=== PATIENT | female | born 1985 | race Caucasian/White ===

== ENCOUNTER 2017-07-13 20:27 | Emergency (ER) | payer SELFPAY ==
[2017-07-13] MEDS ORDERED: Ativan 2 MG/1 ML VIAL IV ONE ×2 (20:55→22:52)
--- NOTE | 2017-07-13 21:01 | ERPHSYRPT ---
- History of Present Illness Time Seen by Provider: 07/13/17 20:43 Source: patient Exam Limitations: no limitations Patient Subjective Stated Complaint: Palpitations Triage Nursing Assessment: Pt presents to the ED with complaints of palpitations. Pt states onset this AM. Pt states hx of complaint. Pt states she became worried due to continiued frequency of palpitations. Pt denies pain or SOB. Pt is A&O x3, no distress noted. Physician History: Pt is nonsmoker, has been c/o recurrent episodes of palpitations for about one month. She started having more severe episodes since this morning. She denies cardiac disease, or family history of such, no medical problems, denies being , not taking hormone pills. Timing/Duration: week(s) (4), intermittent Activities at Onset: none Quality: other (denies) Severity of Pain-Max: none Severity of Pain-Current: none Modifying Factors: Improves With: nothing Nitro Today/Relief: no nitro taken today Aspirin Treatment Today: no aspirin today Associated Symptoms: denies symptoms Prior Chest Pain/Cardiac Workup: no prior chest pain Allergies/Adverse Reactions: No Known Drug Allergies Allergy (Unverified 07/13/17 21:00) Hx Tetanus, Diphtheria Vaccination/Date Given: No Hx Influenza Vaccination/Date Given: No Hx Pneumococcal Vaccination/Date Given: No Immunizations Up to Date: No - Review of Systems Constitutional: No Symptoms Cardiac: Palpitations All Other Systems: Reviewed and Negative - Past Medical History Pertinent Past Medical History: Yes Neurological History: No Pertinent History ENT History: No Pertinent History Cardiac History: Hypertension, Other Respiratory History: No Pertinent History Endocrine Medical History: No Pertinent History Musculoskeletal History: No Pertinent History GI Medical History: No Pertinent History History: No Pertinent History Psycho-Social History: No Pertinent History Female Reproductive Disorders: No Pertinent History - Past Surgical History Past Surgical History: Yes Neuro Surgical History: No Pertinent History Cardiac: No Pertinent History Respiratory: No Pertinent History Gastrointestinal: No Pertinent History Genitourinary: No Pertinent History Musculoskeletal: No Pertinent History Female Surgical History: Section - Social History Smoking Status: Never smoker Exposure to second hand smoke: No Drug Use: none Patient Lives Alone: No - Female History Hx Last Menstrual Period: 06/12/2017 Hx Now: No - Nursing Vital Signs Nursing Vital Signs: Initial Vital Signs Temperature 98.7 F 07/13/17 20:49 Pulse Rate 119 H 07/13/17 20:49 Respiratory Rate 17 07/13/17 20:49 Blood Pressure 192/108 07/13/17 20:49 O2 Sat by Pulse Oximetry 100 07/13/17 20:49 Pain Scale Pain Intensity 0 - Physical Exam General Appearance: no apparent distress Eye Exam: PERRL/EOMI Ears, Nose, Throat Exam: normal ENT inspection Neck Exam: normal inspection, non-tender, supple, No carotid bruit, No JVD Respiratory Exam: normal breath sounds, lungs clear, No chest tenderness Cardiovascular Exam: normal heart sounds, normal peripheral pulses, tachycardia , No murmur Gastrointestinal/Abdomen Exam: soft, normal bowel sounds Back Exam: normal inspection Extremity Exam: normal inspection, No calf tenderness Neurologic Exam: alert, oriented x 3, normal mood/affect Skin Exam: normal color, warm, dry, No rash Lymphatic Exam: No adenopathy SpO2 Interpretation: normal SpO2: 100 Oxygen Delivery: Room Air - Course Nursing assessment & vital signs reviewed: Yes EKG Interpreted by Me: Sinus Tach, NORMAL AXIS, Non-specific ST Changes - Radiology Exams Chest X-ray Interpretation: Interpreted by me, Negative Ordered Tests: Active Orders 24 hr Category Date Time Status Change House Attendant STAT Care 07/13/17 20:55 Active EKG-ER Only STAT Care 07/13/17 20:55 Active EKG-ER Only STAT Care 07/14/17 00:14 Active IV Insertion STAT Care 07/13/17 20:55 Active CHEST 1 VIEW (PORTABLE) Stat Exams 07/13/17 20:55 Taken CBC W DIFF Stat Lab 07/13/17 22:00 Completed CK-Creatinine Phosphokinase Stat Lab 07/13/17 22:00 Completed CMP Stat Lab 07/13/17 22:00 Completed D-DIMER QUANTITATION Stat Lab 07/13/17 22:15 Completed HCG,QUALITATIVE URINE Stat Lab 07/13/17 22:00 Completed MAGNESIUM Stat Lab 07/13/17 22:00 Completed NT PRO BNP Stat Lab 07/13/17 22:00 Completed TROPONIN Q3H Lab 07/13/17 22:00 Completed TROPONIN Q3H Lab 07/14/17 00:10 Completed TROPONIN Q3H Lab 07/14/17 03:00 Ordered TROPONIN Q3H Lab 07/14/17 06:00 Ordered TROPONIN Q3H Lab 07/14/17 09:00 Ordered TSH [TSH, 3RD Generation] Stat Lab 07/13/17 22:00 Completed UA W/RFX UR CULTURE Stat Lab 07/13/17 22:00 Completed Urine Triage Profile Stat Lab 07/13/17 22:00 Completed Medication Summary Generic Name Dose Route Start Last Admin Trade Name Marcus PRN Reason Stop Dose Admin Metoprolol Succinate 50 mg 07/14/17 23:55 07/14/17 00:00 Toprol Xl 50 Mg PO 07/14/17 23:56 50 mg NOW ONE Administration Discontinued Medications Generic Name Dose Route Start Last Admin Trade Name Marcus PRN Reason Stop Dose Admin Diphenhydramine HCl 25 mg 07/13/17 22:52 07/13/17 22:55 Benadryl 50 Mg/Ml IV 07/13/17 22:53 25 mg STAT ONE Administration Diphenhydramine HCl Confirm 07/13/17 22:53 Benadryl 50 Mg/Ml Administered 07/13/17 22:54 Dose 50 mg .ROUTE .STK-MED ONE Sodium Chloride 1,000 mls @ 999 mls/hr 07/13/17 22:50 07/13/17 22:55 Sodium Chloride 0.9% 1000 Ml IV 07/13/17 23:50 999 mls/hr .Q1H1M STA Administration Sodium Chloride Confirm 07/13/17 22:53 Sodium Chloride 0.9% 1000 Ml Administered 07/13/17 22:54 Dose 1,000 mls @ ud .ROUTE .STK-MED ONE Lorazepam 0.5 mg 07/13/17 20:55 07/13/17 21:34 Ativan 2 Mg/1 Ml Vial IV 07/13/17 20:56 0.5 mg STAT ONE Administration Lorazepam Confirm 07/13/17 21:05 Ativan 2 Mg/1 Ml Vial Administered 07/13/17 21:06 Dose 2 mg .ROUTE .STK-MED ONE Lorazepam 0.5 mg 07/13/17 22:52 07/13/17 22:55 Ativan 2 Mg/1 Ml Vial IV 07/13/17 22:53 0.5 mg STAT ONE Administration Lorazepam Confirm 07/13/17 22:52 Ativan 2 Mg/1 Ml Vial Administered 07/13/17 22:53 Dose 2 mg .ROUTE .STK-MED ONE Metoprolol Succinate Confirm 07/13/17 23:57 Toprol-Xl 25mg Tablets Administered 07/13/17 23:58 Dose 50 mg .ROUTE .STK-MED ONE Lab/Rad Data: Laboratory Result Diagrams 07/13/17 22:00 07/13/17 22:00 Laboratory Results 07/14/17 07/13/17 07/13/17 Range/Units 00:10 22:15 22:00 WBC (4.0-10.5) K/mm3 RBC (4.1-5.4) M/mm3 Hgb (12.0-16.0) gm/dl Hct (35-47) % MCV (78-100) fl MCH (26-32) pg MCHC (32-36) g/dl RDW (11.5-14.0) % Plt Count (150-450) K/mm3 MPV (6-9.5) fl Gran % (36.0-66.0) % Lymphocytes % (24.0-44.0) % Monocytes % (0.0-12.0) % Eosinophils % (0.00-5.0) % Basophils % (0.0-0.4) % Basophils # (0-0.4) D-Dimer 281.23 (0-500) ng/mL Sodium (136-145) mEq/L Potassium (3.5-5.1) mEq/L Chloride (98-107) mEq/L Carbon Dioxide (21-32) mEq/L Anion Gap (5-15) MEQ/L BUN (9-20) mg/dL Creatinine (0.55-1.30) mg/dl Estimated GFR ML/MIN Glucose (70-110) MG/DL Calcium (8.5-10.1) mg/dL Magnesium (1.8-2.4) mg/dL Total Bilirubin (0.2-1.0) mg/dL AST (15-37) U/L ALT (12-78) U/L Alkaline Phosphatase (46-116) U/L Creatine Kinase (26-192) U/L Troponin I < 0.017 (0.000-0.056) ng/ml NT-Pro-B Natriuret Pep (0-125) pg/ml Serum Total Protein (6.4-8.2) gm/dL Albumin (3.4-5.0) g/dL TSH 3rd Generation 1.915 (0.358-3.740) mIU/L Ur Collection Type Urine Color (YELLOW) Urine Appearance (CLEAR) Urine pH (5-6) Ur Specific [place] (1.005-1.025) Urine Protein (Negative) Urine Ketones (NEGATIVE) Urine Blood (0-5) Bhavesh/ul Urine Nitrite (NEGATIVE) Urine Bilirubin (NEGATIVE) Urine Urobilinogen (0-1) mg/dL Ur Leukocyte Esterase (NEGATIVE) Urine Culture Reflexed (NO) Urine Glucose (NEGATIVE) mg/dL Urine HCG, Qual (Negative) Urine Opiates Level (NEGATIVE) Ur Methadone (NEGATIVE) Urine Barbiturates (NEGATIVE) Ur Phencyclidine (PCP) (NEGATIVE) Urine Amphetamine (NEGATIVE) U Benzodiazepine Level (NEGATIVE) Urine Cocaine (NEGATIVE) Urine Marijuana (THC) (NEGATIVE) Specimen Received 07/13/17 07/13/17 07/13/17 Range/Units 22:00 22:00 22:00 WBC 13.7 H (4.0-10.5) K/mm3 RBC 5.19 (4.1-5.4) M/mm3 Hgb 13.1 (12.0-16.0) gm/dl Hct 41.5 (35-47) % MCV 80.0 (78-100) fl MCH 25.2 L (26-32) pg MCHC 31.6 L (32-36) g/dl RDW 16.2 H (11.5-14.0) % Plt Count 250 (150-450) K/mm3 MPV 11.1 H (6-9.5) fl Gran % 80.3 H (36.0-66.0) % Lymphocytes % 14.2 L (24.0-44.0) % Monocytes % 4.0 (0.0-12.0) % Eosinophils % 1.4 (0.00-5.0) % Basophils % 0.1 (0.0-0.4) % Basophils # 0.02 (0-0.4) D-Dimer (0-500) ng/mL Sodium 138 (136-145) mEq/L Potassium 3.8 (3.5-5.1) mEq/L Chloride 103 (98-107) mEq/L Carbon Dioxide 26.4 (21-32) mEq/L Anion Gap 12.7 (5-15) MEQ/L BUN 13 (9-20) mg/dL Creatinine 0.92 (0.55-1.30) mg/dl Estimated GFR > 60 ML/MIN Glucose 146 H (70-110) MG/DL Calcium 9.4 (8.5-10.1) mg/dL Magnesium 1.8 (1.8-2.4) mg/dL Total Bilirubin 0.10 L (0.2-1.0) mg/dL AST 20 (15-37) U/L ALT 32 (12-78) U/L Alkaline Phosphatase 63 (46-116) U/L Creatine Kinase 59 (26-192) U/L Troponin I < 0.017 (0.000-0.056) ng/ml NT-Pro-B Natriuret Pep 99 (0-125) pg/ml Serum Total Protein 8.0 (6.4-8.2) gm/dL Albumin 3.5 (3.4-5.0) g/dL TSH 3rd Generation (0.358-3.740) mIU/L Ur Collection Type Urine Color (YELLOW) Urine Appearance (CLEAR) Urine pH (5-6) Ur Specific [place] (1.005-1.025) Urine Protein (Negative) Urine Ketones (NEGATIVE) Urine Blood (0-5) Bhavesh/ul Urine Nitrite (NEGATIVE) Urine Bilirubin (NEGATIVE) Urine Urobilinogen (0-1) mg/dL Ur Leukocyte Esterase (NEGATIVE) Urine Culture Reflexed (NO) Urine Glucose (NEGATIVE) mg/dL Urine HCG, Qual (Negative) Urine Opiates Level (NEGATIVE) Ur Methadone (NEGATIVE) Urine Barbiturates (NEGATIVE) Ur Phencyclidine (PCP) (NEGATIVE) Urine Amphetamine (NEGATIVE) U Benzodiazepine Level (NEGATIVE) Urine Cocaine (NEGATIVE) Urine Marijuana (THC) (NEGATIVE) Specimen Received 07/13/17 07/13/17 07/13/17 Range/Units 22:00 22:00 22:00 WBC (4.0-10.5) K/mm3 RBC (4.1-5.4) M/mm3 Hgb (12.0-16.0) gm/dl Hct (35-47) % MCV (78-100) fl MCH (26-32) pg MCHC (32-36) g/dl RDW (11.5-14.0) % Plt Count (150-450) K/mm3 MPV (6-9.5) fl Gran % (36.0-66.0) % Lymphocytes % (24.0-44.0) % Monocytes % (0.0-12.0) % Eosinophils % (0.00-5.0) % Basophils % (0.0-0.4) % Basophils # (0-0.4) D-Dimer (0-500) ng/mL Sodium (136-145) mEq/L Potassium (3.5-5.1) mEq/L Chloride (98-107) mEq/L Carbon Dioxide (21-32) mEq/L Anion Gap (5-15) MEQ/L BUN (9-20) mg/dL Creatinine (0.55-1.30) mg/dl Estimated GFR ML/MIN Glucose (70-110) MG/DL Calcium (8.5-10.1) mg/dL Magnesium (1.8-2.4) mg/dL Total Bilirubin (0.2-1.0) mg/dL AST (15-37) U/L ALT (12-78) U/L Alkaline Phosphatase (46-116) U/L Creatine Kinase (26-192) U/L Troponin I (0.000-0.056) ng/ml NT-Pro-B Natriuret Pep (0-125) pg/ml Serum Total Protein (6.4-8.2) gm/dL Albumin (3.4-5.0) g/dL TSH 3rd Generation (0.358-3.740) mIU/L Ur Collection Type CCMS Urine Color LT.YELLOW (YELLOW) Urine Appearance CLEAR (CLEAR) Urine pH 7.0 (5-6) Ur Specific [place] 1.005 (1.005-1.025) Urine Protein NEGATIVE (Negative) Urine Ketones NEGATIVE (NEGATIVE) Urine Blood NEGATIVE (0-5) Bhavesh/ul Urine Nitrite NEGATIVE (NEGATIVE) Urine Bilirubin NEGATIVE (NEGATIVE) Urine Urobilinogen NORMAL (0-1) mg/dL Ur Leukocyte Esterase NEGATIVE (NEGATIVE) Urine Culture Reflexed NO (NO) Urine Glucose NEGATIVE (NEGATIVE) mg/dL Urine HCG, Qual NEGATIVE (Negative) Urine Opiates Level NEG. (NEGATIVE) Ur Methadone NEG. (NEGATIVE) Urine Barbiturates NEG. (NEGATIVE) Ur Phencyclidine (PCP) NEG. (NEGATIVE) Urine Amphetamine NEG. (NEGATIVE) U Benzodiazepine Level NEG. (NEGATIVE) Urine Cocaine NEG. (NEGATIVE) Urine Marijuana (THC) NEG. (NEGATIVE) Specimen Received [id number] - Progress Progress: improved Air Movement: good Progress Note: 07/14/17 00:57 Heart rate controlled after Ativan iv saline and Metoprolol PO, she feels better , denies chest pain or SOB, stable. Informed about all results and recommend close follow up with a primary care doctor, given Rx for Metoprolol. - Departure Time of Disposition: 00:58 Departure Disposition: Home Clinical Impression: Palpitations Hypertension Qualifiers: Hypertension type: unspecified Qualified Code(s): I10 - Essential (primary) hypertension Condition: Stable Critical Care Time: No Instructions: Palpitations, Palpitations (DC), High Blood Pressure (DC) Additional Instructions: Rest x 2-3 days, return if severe palpitations, dizziness, chest pain, shortness of breath! Establish with primary care doctor for close follow up and further workup! Prescriptions: Metoprolol Succinate 50 mg [Toprol Xl 50 MG] 50 mg PO DAILY #30 tablet
[2017-07-13] MEDS ORDERED: Ativan 2 MG/1 ML VIAL ONE ×2 (21:05→22:52)
[2017-07-13 22:16] LABS: BASOPHIL % 0.1 % (0.0-0.4); Basophil (Absolute #) 0.02 (0-0.4); Eosinophil % 1.4 % (0.00-5.0); Eosinophil (Absolute #) 0.19 (0-0.5); Granulocyte Absolute (ANC) 10.99 (1.4-6.9); Granulocytes % 80.3 % (36.0-66.0); Hematocrit 41.5 % (35-47); Hemoglobin 13.1 gm/dl (12.0-16.0); Lymphocyte (Absolute #) 1.95 (1.0-4.6); Lymphocytes % 14.2 % (24.0-44.0); Mean Corpuscular Hemoglobin 25.2 pg (26-32); Mean Corpuscular Hgb Concent. 31.6 g/dl (32-36); Mean Platelet Volume 11.1 fl (6-9.5); Monocyte (Absolute #) 0.55 (0.0-1.3); Platelet Count 250 K/mm3 (150-450); Red Blood Count 5.19 M/mm3 (4.1-5.4); Red Cell Distribution Width 16.2 % (11.5-14.0); White Blood Count 13.7 K/mm3 (4.0-10.5)
[2017-07-13 22:22] LABS: Appearance CLEAR (CLEAR); Bilirubin NEGATIVE (NEGATIVE); Blood NEGATIVE Ery/ul (0-5); Glucose NEGATIVE (NEGATIVE); Ketones NEGATIVE (NEGATIVE); Leukocyte Esterase NEGATIVE (NEGATIVE); Nitrite NEGATIVE (NEGATIVE); Protein,Urine Dip NEGATIVE (Negative); Specific Gravity 1.005 (1.005-1.025); Urobilinogen NORMAL mg/dL (0-1)
[2017-07-13 22:28] LABS: Amphetamine,Urine NEG. (NEGATIVE); Barbiturate,Urine NEG. (NEGATIVE); Benzodiazepine,Urine NEG. (NEGATIVE); Cocaine,Urine NEG. (NEGATIVE); Methadone,Urine NEG. (NEGATIVE); Opiate,Urine NEG. (NEGATIVE); PCP,Urine NEG. (NEGATIVE); THC,Urine NEG. (NEGATIVE)
[2017-07-13] MEDS ORDERED: Sodium Chloride 0.9% 1000 ML 1,000 ML IV STA (22:50)
[2017-07-13] MEDS ORDERED: BENADRYL 50 MG/ML IV ONE (22:52)
[2017-07-13] MEDS ORDERED: Sodium Chloride 0.9% 1000 ML 1,000 ML ONE (22:53)
[2017-07-13] MEDS ORDERED: BENADRYL 50 MG/ML ONE (22:53)
[2017-07-13 22:57] LABS: ALBUMIN 3.5 g/dL (3.4-5.0); ALKALINE PHOSPHATASE 63 U/L (46-116); ANION GAP 12.7 MEQ/L (5-15); BLOOD UREA NITROGEN 13 mg/dL (9-20); CHLORIDE 103 mEq/L (98-107); CK-Creatinine Phosphokinase 59 U/L (26-192); Calcium 9.4 mg/dL (8.5-10.1); Carbon Dioxide 26.4 mEq/L (21-32); Creatinine 1 0.92 mg/dl (0.55-1.30); EST GLOMERULAR FILTRATION RATE > 60 ML/MIN; Glucose 146 MG/DL (70-110); MAGNESIUM 1.8 mg/dL (1.8-2.4); NT PRO BNP 99 pg/ml (0-125); Potassium 3.8 mEq/L (3.5-5.1); SGOT/AST 20 U/L (15-37); SGPT/ALT 32 U/L (12-78); SODIUM 138 mEq/L (136-145)
[2017-07-13] MEDS ORDERED: Toprol-Xl 25MG Tablets ONE (23:57)
[2017-07-14 01:24] VITALS: BP 148/93; PULSE 85; O2SAT 96
--- NOTE | 2017-07-14 09:03 | XRAY ---
Indication: Palpitations. Comparison: None Portable apical lordotic chest is clear with a few incidental calcified granulomas. Heart and mediastinal structures within normal limits for AP portable technique. Bony thoracic intact. Impression: Nonacute chest. Evidence for old granulomatous disease.
[2017-07-14] MEDS ORDERED: Toprol Xl 50 MG PO ONE (23:55)
== END 2017-07-14 01:26 | disposition home or self-care (01) ==
LOC: ED 20:27
DX: R00.2 Palpitations (principal); I10 Essential (primary) hypertension
CPT/HCPCS: 36000; 36415; 71045; 80053; 80307; 81002; 82550; 83735; 83880; 84443; 84484; 84703; 85025; 85379; 93005; 93041; 96360; 96374; 96376; 99284; J1200; J2060; A9270-GY

== ENCOUNTER 2017-12-24 08:57 | Emergency (ER) | payer OTHER ==
[2017-12-24] MEDS ORDERED: ZOFRAN ODT 4 MG PO ONE (09:15)
--- NOTE | 2017-12-24 09:15 | ERPHSYRPT ---
- History of Present Illness Time Seen by Provider: 12/24/17 09:10 Historian: patient, EMS Exam Limitations: no limitations Patient Subjective Stated Complaint: pt here for nausea that woke up this morning and states she about passed out from dry heaves, and got scared and wanted to be seen, pt states she feels much better now Triage Nursing Assessment: pt alert, resp easy, skin w/d/p. abd soft, Physician History: The patient is a 32-year-old female brought in from home by ambulance where she had a sudden onset of abdominal pain and cramping followed by several rounds of watery diarrhea. She also states she was experiencing dry heaves, 30, 40, or 50 times. She became panicked because she had never experienced anything like this before. She had her call the ambulance. She started to feel much better. She declined an IV in the ambulance as well as declining an IV or blood glucose stick here in the ER. She wants to try drinking without having an IV. Her past medical history is significant for palpitations and hypertension. Her surgical history is significant for 3 C-sections. Timing/Duration: today Activities at Onset: none Quality: cramping Abdominal Pain Onset Location: epigastric Pain Radiation: no radiation Severity of Pain-Max: severe Severity of Pain-Current: none Modifying Factors: Improves With: other (diarrhea) Associated Symptoms: diarrhea, nausea Previous symptoms: no prior history Allergies/Adverse Reactions: Penicillins Allergy (Verified 12/24/17 09:09) Hx Tetanus, Diphtheria Vaccination/Date Given: No Hx Influenza Vaccination/Date Given: No Hx Pneumococcal Vaccination/Date Given: No Immunizations Up to Date: Yes - Review of Systems Constitutional: No Fever, No Chills Eyes: No Symptoms Ears, Nose, & Throat: No Symptoms Respiratory: No Cough, No Dyspnea Cardiac: No Chest Pain, No Edema, No Syncope Abdominal/Gastrointestinal: Abdominal Pain, Nausea, Diarrhea Genitourinary Symptoms: No Dysuria Musculoskeletal: No Back Pain, No Neck Pain Skin: No Rash Neurological: No Dizziness, No Focal Weakness, No Sensory Changes Psychological: No Symptoms Endocrine: No Symptoms Hematologic/Lymphatic: No Symptoms Immunological/Allergic: No Symptoms All Other Systems: Reviewed and Negative - Past Medical History Pertinent Past Medical History: Yes Neurological History: No Pertinent History ENT History: No Pertinent History Cardiac History: Hypertension, Other Respiratory History: No Pertinent History Endocrine Medical History: No Pertinent History Musculoskeletal History: No Pertinent History GI Medical History: No Pertinent History History: No Pertinent History Psycho-Social History: No Pertinent History Female Reproductive Disorders: No Pertinent History - Past Surgical History Past Surgical History: Yes Neuro Surgical History: No Pertinent History Cardiac: No Pertinent History Respiratory: No Pertinent History Gastrointestinal: No Pertinent History Genitourinary: No Pertinent History Musculoskeletal: No Pertinent History Female Surgical History: Section - Social History Smoking Status: Never smoker Exposure to second hand smoke: No Drug Use: none Patient Lives Alone: No - Female History Hx Last Menstrual Period: october 07 Hx Now: No - Nursing Vital Signs Nursing Vital Signs: Pain Scale Pain Intensity 0 - Physical Exam General Appearance: no apparent distress, alert, obese Eye Exam: PERRL/EOMI, eyes nml inspection Ears, Nose, Throat Exam: normal ENT inspection, pharynx normal, moist mucous membranes Neck Exam: normal inspection, non-tender, supple, full range of motion Respiratory Exam: normal breath sounds, lungs clear, No respiratory distress Cardiovascular Exam: regular rate/rhythm, normal heart sounds Gastrointestinal/Abdomen Exam: other (hyperactive BS), No tenderness Pelvic Exam: not done Rectal Exam: not done Back Exam: normal inspection, normal range of motion, No CVA tenderness, No vertebral tenderness Extremity Exam: normal inspection, normal range of motion, pelvis stable Neurologic Exam: alert, oriented x 3, cooperative, normal mood/affect, nml cerebellar function, sensation nml, No motor deficits Skin Exam: normal color, warm, dry SpO2 Interpretation: normal - Radiology Exams Abdomen X-ray Interpretation: Interpreted by me, Negative Ordered Tests: Active Orders 24 hr Category Date Time Status KUB Stat Exams 12/24/17 09:43 Completed BMP Stat Lab 12/24/17 09:26 Completed CBC W DIFF Stat Lab 12/24/17 09:26 Completed HCG QUALITATIVE,SERUM Stat Lab 12/24/17 09:26 Completed Medication Summary Discontinued Medications Generic Name Dose Route Start Last Admin Trade Name Freq PRN Reason Stop Dose Admin Ondansetron HCl 4 mg 12/24/17 09:15 12/24/17 09:29 Zofran Odt 4 Mg PO 12/24/17 09:16 4 mg STAT ONE Administration Ondansetron HCl Confirm 12/24/17 09:29 Zofran Odt 4 Mg Administered 12/24/17 09:30 Dose 4 mg .ROUTE .STK-MED ONE Lab/Rad Data: Laboratory Result Diagrams 12/24/17 09:26 12/24/17 09:26 Laboratory Results 12/24/17 12/24/17 12/24/17 Range/Units 09:26 09: 09:26 WBC 10.7 H (4.0-10.5) K/mm3 RBC 5.19 (4.1-5.4) M/mm3 Hgb 13.1 (12.0-16.0) gm/dl Hct 41.5 (35-47) % MCV 80.0 (78-100) fl MCH 25.2 L (26-32) pg MCHC 31.6 L (32-36) g/dl RDW 17.1 H (11.5-14.0) % Plt Count 213 (150-450) K/mm3 MPV 10.3 H (6-9.5) fl Gran % 79.0 H (36.0-66.0) % Eos # (Auto) 0.07 (0-0.5) Absolute Lymphs (auto) 1.59 (1.0-4.6) Absolute Monos (auto) 0.56 (0.0-1.3) Lymphocytes % 14.9 L (24.0-44.0) % Monocytes % 5.3 (0.0-12.0) % Eosinophils % 0.7 (0.00-5.0) % Basophils % 0.1 (0.0-0.4) % Absolute Granulocytes 8.42 H (1.4-6.9) Basophils # 0.01 (0-0.4) Sodium 141 (137-145) mmol/L Potassium 3.9 (3.5-5.1) mmol/L Chloride 109 H (98-107) mmol/L Carbon Dioxide 24 (22-30) mmol/L Anion Gap 12.9 (5-15) MEQ/L BUN 10 (7-17) mg/dL Creatinine 0.68 (0.52-1.04) mg/dL Estimated GFR > 60.0 ML/MIN Glucose 128 H (74-106) mg/dL Calcium 8.9 (8.4-10.2) mg/dL Serum , Qual NEGATIVE (Negative) - Progress Progress: improved Progress Note: 12/24/17 10:14 Pt eating ice chips and feeling better. Counseled pt/family regarding: lab results, diagnosis, rad results - Departure Time of Disposition: 10:15 Departure Disposition: Home Clinical Impression: Gastroenteritis Condition: Stable Critical Care Time: No Referrals: DOCTOR,NO FAMILY [Primary Care Provider] - Additional Instructions: You have gastroenteritis. You were given Zofran 4 mg ODT in the ER. Begin your diet with liquids and advance as tolerated. You may take Zofran 4 mg ODT every 6 hours as needed for nausea. Follow-up as needed. Prescriptions: Ondansetron ODT 4 MG [Zofran Odt 4 mg] 1 tab PO Q6H PRN PRN #10 tab.rapdis PRN Reason: Nausea/Vomiting
[2017-12-24 09:28] LABS: BASOPHIL % 0.1 % (0.0-0.4); Basophil (Absolute #) 0.01 (0-0.4); Eosinophil % 0.7 % (0.00-5.0); Eosinophil (Absolute #) 0.07 (0-0.5); Granulocyte Absolute (ANC) 8.42 (1.4-6.9); Hematocrit 41.5 % (35-47); Hemoglobin 13.1 gm/dl (12.0-16.0); Lymphocyte (Absolute #) 1.59 (1.0-4.6); Lymphocytes % 14.9 % (24.0-44.0); Mean Corpuscular Hemoglobin 25.2 pg (26-32); Mean Corpuscular Hgb Concent. 31.6 g/dl (32-36); Mean Platelet Volume 10.3 fl (6-9.5); Monocyte (Absolute #) 0.56 (0.0-1.3); Monocytes % 5.3 % (0.0-12.0); Platelet Count 213 K/mm3 (150-450); Red Blood Count 5.19 M/mm3 (4.1-5.4); Red Cell Distribution Width 17.1 % (11.5-14.0); White Blood Count 10.7 K/mm3 (4.0-10.5)
[2017-12-24] MEDS ORDERED: ZOFRAN ODT 4 MG ONE (09:29)
[2017-12-24 09:54] LABS: ANION GAP 12.9 MEQ/L (5-15); BLOOD UREA NITROGEN 10 mg/dL (7-17); CHLORIDE 109 mmol/L (98-107); Calcium 8.9 mg/dL (8.4-10.2); Carbon Dioxide 24 mmol/L (22-30); Creatinine 1 0.68 mg/dL (0.52-1.04); Glucose 128 mg/dL (74-106); Potassium 3.9 mmol/L (3.5-5.1); SODIUM 141 mmol/L (137-145)
--- NOTE | 2017-12-24 10:07 | XRAY ---
Indication: Stomach pain and nausea. Comparison: None KUB nonacute and nonobstructed. Solid organs and osseous structures unremarkable. Impression: Negative KUB.
[2017-12-24 10:59] VITALS: BP 153/97; PULSE 97; O2SAT 97
== END 2017-12-24 10:59 | disposition home or self-care (01) ==
LOC: ED 08:57
DX: K52.9 Noninfective gastroenteritis and colitis, unspecified (principal); I10 Essential (primary) hypertension
CPT/HCPCS: 36415; 74018; 80048; 84703; 85025; 99284; Q0162

== ENCOUNTER 2020-09-05 19:09 | Emergency (ER) | payer OTHER ==
[2020-09-05] MEDS ORDERED: TORAdol 30 mg Injection IM ONE (20:26)
--- NOTE | 2020-09-05 20:26 | ERPHSYRPT ---
- History of Present Illness Time Seen by Provider: 09/05/20 20:21 Source: patient, family Exam Limitations: no limitations Patient Subjective Stated Complaint: pt states at 0130 she started having cramps and felt like her neck and back of her head was very tense. states that feeling lasted for approx 1/2 an hour and has had a throbbing headache since. states pain in the back of her head is throbbing Triage Nursing Assessment: pt alert and oriented, answers questions approp. pt ambulatory with steady gait noted. skin warm and dry. respirations nonlabored with lungs cta. pupils equal and reactive. bilat upper and lower ext equal and wnl. Physician History: pt has hx of tension headaches similar to this and was concerned since her BP was a little high this time. Fundi are benign and no neuro deficits , no CP , no N/V, no abd pain no fever, no meningismis. no hx trauma. discussed CT and pt does agree after discussion to f/u PCP to consider MRI rather than rad risk of CT, which is a reasonable Timing/Duration: today Quality: aching Head Pain Location: occipital Severity of Pain-Max: moderate Severity of Pain-Current: moderate Recent Head Trauma: no recent headache/trauma, chronic headaches Associated Symptoms: denies symptoms Previous symptoms: no prior history Allergies/Adverse Reactions: Penicillins Allergy (Verified 09/05/20 20:00) Home Medications: Montelukast Sodium 10 mg [Singulair 10 MG] 10 mg PO HS 09/05/20 [History] Hx Tetanus, Diphtheria Vaccination/Date Given: No Hx Influenza Vaccination/Date Given: No Hx Pneumococcal Vaccination/Date Given: No Immunizations Up to Date: No Travel Risk - International Travel Have you traveled outside of the country in past 3 weeks: No - Coronavirus Screening Are you exhibiting any of the following symptoms?: No Close contact with a COVID-19 positive Pt in past 14-21 Days: No - Vaccine Status Have you recieved a Covid-19 vaccination: No - Review of Systems Constitutional: No Fever, No Chills Eyes: No Symptoms Ears, Nose, & Throat: No Symptoms Respiratory: No Cough, No Dyspnea Cardiac: No Chest Pain, No Edema, No Syncope Abdominal/Gastrointestinal: No Abdominal Pain, No Nausea, No Vomiting, No Diarrhea Genitourinary Symptoms: No Dysuria Musculoskeletal: No Back Pain, No Neck Pain Skin: No Rash Neurological: Headache, No Dizziness, No Focal Weakness, No Sensory Changes Psychological: No Symptoms Endocrine: No Symptoms All Other Systems: Reviewed and Negative - Past Medical History Pertinent Past Medical History: Yes Neurological History: No Pertinent History ENT History: No Pertinent History Cardiac History: Hypertension, Other Respiratory History: Sleep Apnea Endocrine Medical History: No Pertinent History Musculoskeletal History: No Pertinent History GI Medical History: No Pertinent History History: No Pertinent History Psycho-Social History: No Pertinent History Female Reproductive Disorders: No Pertinent History - Past Surgical History Past Surgical History: Yes Neuro Surgical History: No Pertinent History Cardiac: No Pertinent History Respiratory: No Pertinent History Gastrointestinal: No Pertinent History Genitourinary: No Pertinent History Musculoskeletal: No Pertinent History Female Surgical History: Section - Social History Smoking Status: Never smoker Exposure to second hand smoke: No Drug Use: none Patient Lives Alone: No - Female History Hx Last Menstrual Period: this week Hx Now: No - Nursing Vital Signs Nursing Vital Signs: Initial Vital Signs Pulse Rate 107 H 09/05/20 19:49 Respiratory Rate 18 09/05/20 19:49 Blood Pressure 195/115 09/05/20 19:49 O2 Sat by Pulse Oximetry 99 09/05/20 19:49 Pain Scale Pain Intensity 4 - Physical Exam General Appearance: no apparent distress Eye Exam: PERRL/EOMI Ears, Nose, Throat Exam: normal ENT inspection, moist mucous membranes Neck Exam: normal inspection, supple, full range of motion, No meningismus Respiratory Exam: normal breath sounds, lungs clear Cardiovascular Exam: regular rate/rhythm, normal heart sounds Gastrointestinal/Abdominal Exam: soft, No tenderness, No distention Back Exam: normal inspection, normal range of motion Mental Status Exam: alert, oriented x 3, cooperative finance professional Exam: normal speech, PERRL, No facial droop Coordination/Gait Exam: normal cerebellar function Motor/Sensory Exam: no motor deficit, no sensory deficit Skin Exam: normal color, warm, dry, No rash SpO2: 99 - Course Nursing assessment & vital signs reviewed: Yes Ordered Tests: Medication Summary Discontinued Medications Generic Name Dose Route Start Last Admin Trade Name Freq PRN Reason Stop Dose Admin Ketorolac Tromethamine 60 mg 09/05/20 20:26 09/05/20 20:40 Toradol 30 Mg Injection IM 09/05/20 20:27 60 mg STAT ONE Administration Ketorolac Tromethamine Confirm 09/05/20 20:32 Toradol 30 Mg Injection Administered 09/05/20 20:33 Dose 60 mg .ROUTE .STK-MED ONE - Progress Progress: improved, re-examined Air Movement: good Progress Note: 09/05/20 21:39 neaqrly resolved with Tx, pt requests to go home and wishes to f/u with PCP for considering MRI and furhter w/u. rather than more in ER or hosp. and has the capacity to make that choice. 09/05/20 21:42 BP came down to 127/80s. Blood Culture(s) Obtained: No Antibiotics given: No Counseled pt/family regarding: diagnosis, need for follow-up - Departure Departure Disposition: Home Clinical Impression: Headache, tension type, chronic Condition: Good Critical Care Time: No Referrals: CATY SAHNI [Primary Care Provider] - Instructions: Headache, Adult (DC), Tension Headache (DC) Additional Instructions: followup with your DrAlfonso as sometimes an MRI or other workup could be considered. THere are also meds specific to treating the tension headaces if that is the type finally diagnosed and they can start a regimen. Return meantime if furhter symptoms or concerns. blood pressure is better , but keep tracking this with your
[2020-09-05] MEDS ORDERED: TORAdol 30 mg Injection ONE (20:32)
[2020-09-05 23:04] VITALS: BP 151/88; PULSE 93; O2SAT 97
== END 2020-09-05 22:15 | disposition home or self-care (01) ==
LOC: ED 19:09
DX: G44.209 Tension-type headache, unspecified, not intractable (principal)
CPT/HCPCS: 96372; 99283; J1885

== ENCOUNTER 2020-09-14 17:39 | Emergency (ER) | payer OTHER ==
[2020-09-14 18:12] LABS: Absolute Neutrophil Ct (ANC) 12.92 (1.4-6.9); BASOPHIL % 0.2 % (0.0-0.4); Basophil (Absolute #) 0.03 (0-0.4); Eosinophil % 0.7 % (0.00-5.0); Eosinophil (Absolute #) 0.12 (0-0.5); Hematocrit 43.1 % (35-47); Hemoglobin 13.7 gm/dl (12.0-16.0); Lymphocytes % 15.5 % (24.0-44.0); Mean Cell Volume 79.8 fl (78-100); Mean Corpuscular Hemoglobin 25.4 pg (26-32); Mean Corpuscular Hgb Concent. 31.8 g/dl (32-36); Mean Platelet Volume 11.1 fl (7.5-11.0); Monocyte (Absolute #) 1.12 (0.0-1.3); Monocytes % 6.7 % (0.0-12.0); Neutrophil % 76.9 % (36.0-66.0); Platelet Count 336 K/mm3 (150-450); Red Cell Distribution Width 16.7 % (11.5-14.0); White Blood Count 16.8 K/mm3 (4.0-10.5)
[2020-09-14] MEDS ORDERED: Ativan 2 MG/1 ML VIAL ONE (18:15)
[2020-09-14] MEDS: Ativan 2 MG/1 ML VIAL IV ONE (18:16)
[2020-09-14 18:19] LABS: INR 1.12 (0.8-3.0); PROTIME 12.7 SECONDS (9.95-12.35)
[2020-09-14 18:21] LABS: PTT 33.5 SECONDS (25.3-37.0)
[2020-09-14 18:27] LABS: ALBUMIN 4.7 g/dL (3.5-5.0); ALKALINE PHOSPHATASE 89 U/L (38-126); ANION GAP 14.3 MEQ/L (5-15); BLOOD UREA NITROGEN 16 mg/dL (7-17); CHLORIDE 98 mmol/L (98-107); Calcium 10.4 mg/dL (8.4-10.2); Carbon Dioxide 28 mmol/L (22-30); Creatinine 1 0.67 mg/dL (0.52-1.04); EST GLOMERULAR FILTRATION RATE > 60.0 ML/MIN; Glucose 134 mg/dL (74-106); Potassium 3.6 mmol/L (3.5-5.1); SGOT/AST 26 U/L (14-36); SGPT/ALT 21 U/L (0-35); SODIUM 137 mmol/L (137-145); Total Protein 8.7 g/dL (6.3-8.2)
[2020-09-14 18:52] LABS: Amphetamine,Urine NEGATIVE (NEGATIVE); Barbiturate,Urine NEGATIVE (NEGATIVE); Benzodiazepine,Urine NEGATIVE (NEGATIVE); Cocaine,Urine NEGATIVE (NEGATIVE); Methadone,Urine NEGATIVE (NEGATIVE); Opiate,Urine NEGATIVE (NEGATIVE); PCP,Urine NEGATIVE (NEGATIVE); THC,Urine NEGATIVE (NEGATIVE)
--- NOTE | 2020-09-14 18:53 | ERPHSYRPT ---
- History of Present Illness Source: patient Patient Subjective Stated Complaint: Pt states that she was driving when she n oticed her heart racing approx 3 hours ago and it hasn't went down Triage Nursing Assessment: Pt was brought to the ER by her , tachycardic, denies pain, pulses normal, skin n/w/d, doesn't appear to be in any distress Physician History: 35 yo wf w palpitations x 3.5 hr. Pt states that she is anxious due to recent of mother and learning of childhood friends a couple of days ago. She denies CP/dyspnea/N/V/fever/new or illegal meds. Timing/Duration: other (3.5hr) Activities at Onset: emotional stress Quality: other (No pain) Location: other (No pain) Chest Pain Radiation: no radiation Severity of Pain-Max: none Severity of Pain-Current: none Modifying Factors: Improves With: nothing Nitro Today/Relief: no nitro taken today Aspirin Treatment Today: no aspirin today Associated Symptoms: No nausea, No vomiting, No abdominal pain, No shortness of breath, No heartburn, No diaphoresis, No cough, No chills, No chest pain, No fever, No headaches, No loss of appetite, No malaise, No rash, No syncope, No seizure, No weakness Prior Chest Pain/Cardiac Workup: no prior chest pain Allergies/Adverse Reactions: Penicillins Allergy (Verified 09/14/20 17:55) Home Medications: Montelukast Sodium 10 mg [Singulair 10 MG] 10 mg PO HS 09/05/20 [History] Lisinopril/Hydrochlorothiazide [Lisinopril-Hctz 10-12.5 mg Tab] 1 tab PO DAILY 09/14/20 [History] Hx Tetanus, Diphtheria Vaccination/Date Given: No Hx Influenza Vaccination/Date Given: No Hx Pneumococcal Vaccination/Date Given: No Travel Risk - International Travel Have you traveled outside of the country in past 3 weeks: No - Coronavirus Screening Are you exhibiting any of the following symptoms?: No Close contact with a COVID-19 positive Pt in past 14-21 Days: No - Vaccine Status Have you recieved a Covid-19 vaccination: No - Review of Systems Constitutional: No Symptoms Eyes: No Symptoms Ears, Nose, & Throat: No Symptoms Respiratory: No Symptoms Cardiac: No Symptoms, Palpitations Abdominal/Gastrointestinal: No Symptoms Genitourinary Symptoms: No Symptoms Musculoskeletal: No Symptoms Skin: No Symptoms Neurological: No Symptoms Psychological: No Symptoms Endocrine: No Symptoms, Excessive Sweating Immunological/Allergic: No Symptoms - Past Medical History Pertinent Past Medical History: Yes Neurological History: No Pertinent History ENT History: No Pertinent History Cardiac History: Hypertension, Other Respiratory History: Sleep Apnea Endocrine Medical History: No Pertinent History Musculoskeletal History: No Pertinent History GI Medical History: No Pertinent History History: No Pertinent History Psycho-Social History: No Pertinent History Female Reproductive Disorders: No Pertinent History - Past Surgical History Past Surgical History: Yes Neuro Surgical History: No Pertinent History Cardiac: No Pertinent History Respiratory: No Pertinent History Gastrointestinal: No Pertinent History Genitourinary: No Pertinent History Musculoskeletal: No Pertinent History Female Surgical History: Section - Social History Smoking Status: Never smoker Exposure to second hand smoke: No Drug Use: none Patient Lives Alone: No Significant Family History: no pertinent family hx - Female History Hx Last Menstrual Period: 09/03/2020 Hx Now: No - Nursing Vital Signs Nursing Vital Signs: Initial Vital Signs Temperature 98.6 F 09/14/20 17:45 Pulse Rate 148 H 09/14/20 17:45 Blood Pressure 141/87 09/14/20 17:45 O2 Sat by Pulse Oximetry 100 09/14/20 17:45 Pain Scale Pain Intensity 0 - Physical Exam General Appearance: no apparent distress, anxiety Eye Exam: PERRL/EOMI, eyes nml inspection Ears, Nose, Throat Exam: normal ENT inspection, TMs normal, pharynx normal, moist mucous membranes Neck Exam: normal inspection, non-tender, supple, full range of motion, No meningismus, No mass, No Brudzinski, No Kernig's Respiratory Exam: normal breath sounds, lungs clear, airway intact, No respiratory distress Cardiovascular Exam: tachycardia Gastrointestinal/Abdomen Exam: soft, normal bowel sounds, No tenderness Back Exam: normal inspection, normal range of motion, No vertebral tenderness Extremity Exam: normal inspection, normal range of motion Neurologic Exam: alert, oriented x 3, cooperative, 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, normal mood/affect, nml station & gait, sensation nml, No motor deficits, No s ensory deficit Skin Exam: normal color, warm, dry, No rash Lymphatic Exam: No adenopathy SpO2 Interpretation: normal SpO2: 100 O2 Delivery: Room Air - Course Nursing assessment & vital signs reviewed: Yes EKG Interpreted by Me: RATE (Sinus tach/R135/Normal QT-QTc/NS ST-T wave changes) - CT Exams Chest CT Interpretation: Discussed w/radiologist (CTA [id number] but no obvious PE) Ordered Tests: Active Orders 24 hr Category Date Time Status EKG-ER Only STAT Care 09/14/20 17:53 Completed CHEST 1 VIEW (PORTABLE) Stat Exams 09/14/20 17:54 Taken CHEST WITH CONTRAST [CT] Stat Exams 09/14/20 19:10 Taken CBC W DIFF Stat Lab 09/14/20 18:00 Completed CMP Stat Lab 09/14/20 18:00 Completed D-DIMER QUANTITATIVE Stat Lab 09/14/20 18:00 Completed PROTIME WITH INR Stat Lab 09/14/20 18:00 Completed PTT Stat Lab 09/14/20 18:00 Completed TROPONIN Q3H Lab 09/14/20 18:00 Completed TROPONIN Q3H Lab 09/14/20 20:24 Completed TSH, 3RD Generation Stat Lab 09/14/20 18:00 Completed Urine Triage Profile Stat Lab 09/14/20 18:20 Completed Medication Summary Discontinued Medications Generic Name Dose Route Start Last Admin Trade Name Freq PRN Reason Stop Dose Admin Lorazepam 1 mg 09/14/20 18:11 09/14/20 18:16 Ativan 2 Mg/1 Ml Vial IV 09/14/20 18:12 1 mg STAT ONE Administration Lorazepam Confirm 09/14/20 18:15 Ativan 2 Mg/1 Ml Vial Administered 09/14/20 18:16 Dose 2 mg .ROUTE .STK-MED ONE Metoprolol Tartrate 50 mg 09/14/20 19:26 09/14/20 19:43 Lopressor 50 Mg PO 09/14/20 19:27 50 mg STAT STA Administration Metoprolol Tartrate Confirm 09/14/20 19:28 Lopressor 50 Mg Administered 09/14/20 19:29 Dose 50 mg .ROUTE .STK-MED ONE Metoprolol Tartrate Confirm 09/14/20 19:36 Lopressor 50 Mg Administered 09/14/20 19:37 Dose 50 mg .ROUTE .STK-MED ONE Lab/Rad Data: Laboratory Result Diagrams 09/14/20 18:00 09/14/20 18:00 Laboratory Results 09/14/20 09/14/20 09/14/20 Range/Units 20:24 18:20 18:00 WBC (4.0-10.5) K/mm3 RBC (4.1-5.4) M/mm3 Hgb (12.0-16.0) gm/dl Hct (35-47) % MCV (78-100) fl MCH (26-32) pg MCHC (32-36) g/dl RDW (11.5-14.0) % Plt Count (150-450) K/mm3 MPV (7.5-11.0) fl Gran % (36.0-66.0) % Eos # (Auto) (0-0.5) Absolute Lymphs (auto) (1.0-4.6) Absolute Monos (auto) (0.0-1.3) Lymphocytes % (24.0-44.0) % Monocytes % (0.0-12.0) % Eosinophils % (0.00-5.0) % Basophils % (0.0-0.4) % Absolute Granulocytes (1.4-6.9) Basophils # (0-0.4) PT (9.95-12.35) SECONDS INR (0.8-3.0) APTT (25.3-37.0) SECONDS D-Dimer (215-500) ng/mL Sodium (137-145) mmol/L Potassium (3.5-5.1) mmol/L Chloride (98-107) mmol/L Carbon Dioxide (22-30) mmol/L Anion Gap (5-15) MEQ/L BUN (7-17) mg/dL Creatinine (0.52-1.04) mg/dL Estimated GFR ML/MIN Glucose (74-106) mg/dL Calcium (8.4-10.2) mg/dL Total Bilirubin (0.2-1.3) mg/dL AST (14-36) U/L ALT (0-35) U/L Alkaline Phosphatase (38-126) U/L Troponin I < 0.012 (0.000-0.034) ng/mL Serum Total Protein (6.3-8.2) g/dL Albumin (3.5-5.0) g/dL Free T4 1.46 (0.76-1.46) ng/dL TSH 3rd Generation (0.47-4.68) mIU/L Urine Opiates Level NEGATIVE (NEGATIVE) Ur Methadone NEGATIVE (NEGATIVE) Urine Barbiturates NEGATIVE (NEGATIVE) Ur Phencyclidine (PCP) NEGATIVE (NEGATIVE) Urine Amphetamine NEGATIVE (NEGATIVE) U Benzodiazepine Level NEGATIVE (NEGATIVE) Urine Cocaine NEGATIVE (NEGATIVE) Urine Marijuana (THC) NEGATIVE (NEGATIVE) 09/14/20 09/14/20 09/14/20 Range/Units 18:00 18:00 18:00 WBC (4.0-10.5) K/mm3 RBC (4.1-5.4) M/mm3 Hgb (12.0-16.0) gm/dl Hct (35-47) % MCV (78-100) fl MCH (26-32) pg MCHC (32-36) g/dl RDW (11.5-14.0) % Plt Count (150-450) K/mm3 MPV (7.5-11.0) fl Gran % (36.0-66.0) % Eos # (Auto) (0-0.5) Absolute Lymphs (auto) (1.0-4.6) Absolute Monos (auto) (0.0-1.3) Lymphocytes % (24.0-44.0) % Monocytes % (0.0-12.0) % Eosinophils % (0.00-5.0) % Basophils % (0.0-0.4) % Absolute Granulocytes (1.4-6.9) Basophils # (0-0.4) PT (9.95-12.35) SECONDS INR (0.8-3.0) APTT (25.3-37.0) SECONDS D-Dimer 5653 H* (215-500) ng/mL Sodium (137-145) mmol/L Potassium (3.5-5.1) mmol/L Chloride (98-107) mmol/L Carbon Dioxide (22-30) mmol/L Anion Gap (5-15) MEQ/L BUN (7-17) mg/dL Creatinine (0.52-1.04) mg/dL Estimated GFR ML/MIN Glucose (74-106) mg/dL Calcium (8.4-10.2) mg/dL Total Bilirubin (0.2-1.3) mg/dL AST (14-36) U/L ALT (0-35) U/L Alkaline Phosphatase (38-126) U/L Troponin I < 0.012 (0.000-0.034) ng/mL Serum Total Protein (6.3-8.2) g/dL Albumin (3.5-5.0) g/dL Free T4 (0.76-1.46) ng/dL TSH 3rd Generation 2.460 (0.47-4.68) mIU/L Urine Opiates Level (NEGATIVE) Ur Methadone (NEGATIVE) Urine Barbiturates (NEGATIVE) Ur Phencyclidine (PCP) (NEGATIVE) Urine Amphetamine (NEGATIVE) U Benzodiazepine Level (NEGATIVE) Urine Cocaine (NEGATIVE) Urine Marijuana (THC) (NEGATIVE) 09/14/20 09/14/20 09/14/20 Range/Units 18:00 18:00 18:00 WBC 16.8 H (4.0-10.5) K/mm3 RBC 5.40 (4.1-5.4) M/mm3 Hgb 13.7 (12.0-16.0) gm/dl Hct 43.1 (35-47) % MCV 79.8 (78-100) fl MCH 25.4 L (26-32) pg MCHC 31.8 L (32-36) g/dl RDW 16.7 H (11.5-14.0) % Plt Count 336 (150-450) K/mm3 MPV 11.1 H (7.5-11.0) fl Gran % 76.9 H (36.0-66.0) % Eos # (Auto) 0.12 (0-0.5) Absolute Lymphs (auto) 2.60 (1.0-4.6) Absolute Monos (auto) 1.12 (0.0-1.3) Lymphocytes % 15.5 L (24.0-44.0) % Monocytes % 6.7 (0.0-12.0) % Eosinophils % 0.7 (0.00-5.0) % Basophils % 0.2 (0.0-0.4) % Absolute Granulocytes 12.92 H (1.4-6.9) Basophils # 0.03 (0-0.4) PT 12.7 H (9.95-12.35) SECONDS INR 1.12 (0.8-3.0) APTT 33.5 (25.3-37.0) SECONDS D-Dimer (215-500) ng/mL Sodium 137 (137-145) mmol/L Potassium 3.6 (3.5-5.1) mmol/L Chloride 98 (98-107) mmol/L Carbon Dioxide 28 (22-30) mmol/L Anion Gap 14.3 (5-15) MEQ/L BUN 16 (7-17) mg/dL Creatinine 0.67 (0.52-1.04) mg/dL Estimated GFR > 60.0 ML/MIN Glucose 134 H (74-106) mg/dL Calcium 10.4 H (8.4-10.2) mg/dL Total Bilirubin 0.30 (0.2-1.3) mg/dL AST 26 (14-36) U/L ALT 21 (0-35) U/L Alkaline Phosphatase 89 (38-126) U/L Troponin I (0.000-0.034) ng/mL Serum Total Protein 8.7 H (6.3-8.2) g/dL Albumin 4.7 (3.5-5.0) g/dL Free T4 (0.76-1.46) ng/dL TSH 3rd Generation (0.47-4.68) mIU/L Urine Opiates Level (NEGATIVE) Ur Methadone (NEGATIVE) Urine Barbiturates (NEGATIVE) Ur Phencyclidine (PCP) (NEGATIVE) Urine Amphetamine (NEGATIVE) U Benzodiazepine Level (NEGATIVE) Urine Cocaine (NEGATIVE) Urine Marijuana (THC) (NEGATIVE) - Progress Progress: improved Progress Note: 09/14/20 20:55 1mg IV Ativan w mild improvement in HR 50mg Lopressor w improvement in HR Troponin neg x2 CTA chest neg for PE HR lower98 before discharge. Pt resting comfortably before DC. Will stop Lis/hctz and start Toprol XL50mg po daily 09/14/20 22:12 Pt to f/u w Dr. Sahni in 1-2 days Counseled pt/family regarding: lab results, diagnosis, need for follow-up, rad results - Departure Departure Disposition: Home Clinical Impression: Anxiety, Tachycardia Condition: Stable Critical Care Time: No Referrals: CATY SAHNI [Primary Care Provider] - Instructions: Arrhythmias, Anxiety, Adult (DC), Sinus Tachycardia (DC) Additional Instructions: Follow up with Dr. Sahni in 1-2 days Stop previous blood pressure med Start Toprol XL once a day Do not take if heart rate below 60 Return to ER for heart rate greater than 120 which lasts greater than 15 minutes/Chest pain/Shortness of breath Prescriptions: Metoprolol Succinate 50 mg [Toprol Xl 50 MG] 50 mg PO DAILY #30 tablet
[2020-09-14] MEDS ORDERED: Lopressor 50 MG ONE ×2 (19:28→19:36)
[2020-09-14] MEDS: Lopressor 50 MG PO STA (19:43)
[2020-09-14 21:04] VITALS: BP 125/91
[2020-09-14 21:35] VITALS: PULSE 102
[2020-09-14 22:13] VITALS: O2SAT 100
--- NOTE | 2020-09-15 08:47 | XRAY ---
Indication: Palpitations. Diaphoresis. Comparison: July 13, 2017. Portable chest again demonstrates normal heart and lungs. Bony thorax intact. No new/acute findings.
--- NOTE | 2020-09-15 08:47 | XRAY ---
Indication: Palpitations. Diaphoresis. Elevated d-dimer. Multiple contiguous axial images obtained through the chest using 100 cc Isovue 370 contrast and PE protocol. Comparison: None There is suboptimal opacification of the pulmonary arteries limiting evaluation of the more distal lobar and segmental branches. No central pulmonary embolus. Heart is not enlarged. Aorta is normal in course and caliber. No pathologic mediastinal/hilar lymphadenopathy. Small hiatal hernia. Lungs are inflated and clear. Bony thorax intact with minimal degenerative changes throughout the spine. Limited upper abdomen including adrenal glands are unremarkable. Impression: 1. Pulmonary embolus evaluation limited due to suboptimal contrast opacification. No obvious central pulmonary embolus. 2. Small hiatal hernia. 3. Remaining CT chest with contrast exam is negative.
== END 2020-09-14 21:37 | disposition home or self-care (01) ==
LOC: ED 17:39
DX: F41.9 Anxiety disorder, unspecified (principal); R00.0 Tachycardia, unspecified
CPT/HCPCS: 36000; 36415; 71045; 71260; 80053; 80307; 84439; 84443; 84484; 85025; 85379; 85610; 85730; 93005; 96374; 99284; J2060; A9270-GY